=== PATIENT | male | born 2005 | race Caucasian/White ===

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

== ENCOUNTER 2023-10-20 14:44 | Emergency (ER) | payer OTHER, SELFPAY | END 2023-10-20 15:05 | disposition home or self-care (01) | LOC: MADERS 14:44 | DX: S50.361A Insect bite (nonvenomous) of right elbow, initial encounter (principal); W57.XXXA Bitten or stung by nonvenomous insect and other nonvenomous arthropods, initial encounter | CPT/HCPCS: 99282 ==